=== PATIENT | female | born 1980 | race Caucasian/White ===

== ENCOUNTER → 2018-02-16 | Outpatient (CLI) | payer BC ==
[2018-02-16 17:08] LABS: BASO % 0.7 % (0.0-1.0); EOS # 0.1 10^3/uL (0.0-0.50); HEMATOCRIT 40.3 % (36.0-47.0); HEMOGLOBIN 12.9 g/dl (12.0-15.5); IMMATURE GRANULOCYTE % 0.3 % (0-3.0); LYMPH # 2.1 10^3/uL (1.5-4.5); LYMPH % 35.4 % (24.0-44.0); MEAN CORPUSCULAR HEMOGLOBIN 31.8 pg (27.0-33.0); MEAN CORPUSCULAR VOLUME 99.3 fl (80.0-96.0); MONO # 0.4 10^3/uL (0.0-0.8); MONO % 7.1 % (0.0-5.0); NEUTROPHILS # 3.2 10^3/uL (1.8-7.7); NEUTROPHILS % 54.5 % (36.0-66.0); PLATELET COUNT, AUTOMATED 317 10^3/uL (150-450); RED BLOOD COUNT 4.06 10^6/uL (4.00-5.40); RED CELL DISTRIBUTION WIDTH 11.9 % (11.5-14.5); WHITE BLOOD COUNT 5.9 10^3/uL (4.0-10.0)
[2018-02-16 17:45] LABS: TOTAL 25(OH) VITAMIN D 44.7 NG/ML (30.0-100.0)
[2018-02-17 00:46] LABS: ALBUMIN/GLOBULIN RATIO 0.88 (1.00-1.93); ALKALINE PHOSPHATASE 73 U/L (45-117); ALT/SGPT 22 U/L (12-78); ANION GAP 10 MEQ/L (8-16); AST/SGOT 14 U/L (7-37); BILIRUBIN,TOTAL 0.3 MG/DL (0.2-1.0); BLOOD UREA NITROGEN 16 MG/DL (7-18); CALCIUM LEVEL 9.2 MG/DL (8.5-10.1); CARBON DIOXIDE LEVEL 22 MEQ/L (21-32); CHLORIDE LEVEL 108 MEQ/L (98-107); CREATININE FOR GFR 0.77 MG/DL (0.55-1.30); FREE T4 0.93 NG/DL (0.76-1.46); GLOMERULAR FILTRATION RATE > 60.0 (>60); GLUCOSE, FASTING 92 MG/DL (70-100); POTASSIUM SERUM 4.4 MEQ/L (3.5-5.1); SODIUM LEVEL 140 MEQ/L (136-145); THYROID STIMULATING HORMONE 0.986 uIU/ML (0.358-3.740); TOTAL PROTEIN 7.5 GM/DL (6.4-8.2)
== END ==
LOC: M WUC 11:43
DX: R53.83 Other fatigue (principal); E55.9 Vitamin D deficiency, unspecified
CPT/HCPCS: 84443

== ENCOUNTER → 2018-03-16 | Outpatient (CLI) | payer BC | LOC: M WUC 09:18 | DX: M54.2 Cervicalgia (principal) | CPT/HCPCS: 72052 ==

== ENCOUNTER → 2018-04-11 | Outpatient (REF) | payer BC | LOC: M LAB REF 17:28 | DX: R30.0 Dysuria (principal) | CPT/HCPCS: 87186 ==

== ENCOUNTER → 2018-04-23 | Outpatient (CLI) | payer BC | LOC: M SMT 10:03 | DX: S93.401A Sprain of unspecified ligament of right ankle, initial encounter (principal); X58.XXXA Exposure to other specified factors, initial encounter; Y92.89 Other specified places as the place of occurrence of the external cause | CPT/HCPCS: 73610 ==

== ENCOUNTER → 2019-05-13 | Outpatient (REF) | payer BC ==
[2019-05-13 13:00] LABS: HEMATOCRIT 37.8 % (36.0-47.0); HEMOGLOBIN 12.1 g/dl (12.0-15.5); MEAN CORPUSCULAR HEMOGLOBIN 30.8 pg (27.0-33.0); MEAN CORPUSCULAR VOLUME 96.2 fl (80.0-96.0); PLATELET COUNT, AUTOMATED 343 10^3/uL (150-450); RED BLOOD COUNT 3.93 10^6/uL (4.00-5.40); WHITE BLOOD COUNT 7.4 10^3/uL (4.0-10.0)
[2019-05-13 14:03] LABS: HCG, SERUM QUANTITATIVE 47380 MIU/ML
[2019-05-14 11:05] LABS: RUBELLA IgG QUALITATIVE IMMUNE (IMMUNE)
[2019-05-14 11:34] LABS: HEPATITIS C VIRUS ABY INDEX 0.1 INDEX (<0.8); HIV 1&2 SCREEN CENTAUR NEGATIVE (NEGATIVE)
== END ==
LOC: M LAB REF 12:29
PROVIDERS: ATTEND Obstetrics & Gynecology
DX: O36.80X0 Pregnancy with inconclusive fetal viability, not applicable or unspecified (principal)

== ENCOUNTER → 2019-08-10 | Outpatient (CLI) | payer BC ==
--- NOTE | 2019-08-10 16:23 | REP ---
OB ULTRASOUND: Real-time ultrasound evaluation of gravid uterus performed. There is a single living intrauterine gestation. Estimated gestational age is reportedly 20 weeks 1 days, EDC 12/27/2019. Today's measurements indicate appropriate growth. BPD 50 mm = 21 weeks 1 days, 78th percentile HC 181 mm = 20 weeks 4 days, 63rd percentile AC 147 mm = 20 weeks 0 days, 48th percentile FL 34 mm = 20 weeks 4 days, 63rd percentile HC/AC ratio 1.23, within normal range. Estimated weight 348 grams, 56th percentile. Cervix is closed and measures 3.9 cm in length. heart rate 153 beats per minute. SEEN/GROSSLY UNREMARKABLE Lateral ventricles yes Posterior fossa yes Upper lip yes Four-chamber heart yes LVOT yes RVOT yes Stomach yes Cord insertion yes Three vessel cord yes Kidneys yes Bladder yes Spine yes position: Variable. Placenta: Posterior and grade 1 with no previa or abruption. Amniotic fluid: Within normal limits. Electronically Signed by All Craig MD 08/10/2019 08:01 P
== END ==
LOC: M RAD 13:34
PROVIDERS: ATTEND Obstetrics & Gynecology
DX: Z34.82 Encounter for supervision of other normal pregnancy, second trimester (principal)

== ENCOUNTER 2019-10-14 16:25 | Outpatient (CLI) | payer BC ==
[~2019-10-14] VITALS: Ht 172.7 cm; Wt 85.0 kg
[2019-10-14 16:42] VITALS: BP 125/81
[2019-10-14] MEDS ORDERED: LACTATED RINGER'S 1000 ML IV ONE (16:45)
[2019-10-14] MEDS ORDERED: LR 1,000 ML IV SCH (17:00)
[2019-10-14] MEDS ORDERED: PRENTAB9 PO (17:03)
[2019-10-14 17:30] LABS: BASO % 0.3 % (0.0-1.0); EOS # 0.1 10^3/uL (0.0-0.5); EOS % 0.8 % (0.0-3.0); HEMATOCRIT 30.1 % (36.0-47.0); HEMOGLOBIN 10.3 g/dl (12.0-15.5); LYMPH % 21.6 % (24.0-44.0); MEAN CORPUSCULAR HEMOGLOBIN 32.1 pg (27.0-33.0); MEAN CORPUSCULAR HGB CONC 34.2 g/dl (32.0-36.5); MEAN CORPUSCULAR VOLUME 93.8 fl (80.0-96.0); MONO # 0.6 10^3/uL (0.0-0.8); MONO % 6.2 % (0.0-5.0); NEUTROPHILS # 6.5 10^3/uL (1.5-8.5); NEUTROPHILS % 70.7 % (36.0-66.0); PLATELET COUNT, AUTOMATED 309 10^3/uL (150-450); RED BLOOD COUNT 3.21 10^6/uL (4.00-5.40); WHITE BLOOD COUNT 9.2 10^3/uL (4.0-10.0)
[2019-10-14 17:51] VITALS: BP 114/55
--- NOTE | 2019-10-14 18:25 | REPVR ---
PROCEDURE INFORMATION: Exam: US After First Trimester, Transabdominal Exam date and time: 10/14/2019 5:55 PM Age: 39 years old Clinical indication: Lmp or gestational age (in weeks): 30+; Antepartum complications; Decreased movements; Fetus 1; ; Additional info: Efw TECHNIQUE: Imaging protocol: Real-time transabdominal obstetrical ultrasound of the maternal pelvis and a second or third trimester with image documentation. COMPARISON: US OBS SINGEL GEST 08/10/2019 2:17 PM (report not provided) FINDINGS: There is a single intrauterine gestation in cephalic presentation. anatomic detail is limited due to advanced gestational age. There is no demonstrated abnormality of the head including lateral ventricles and posterior fossa, spine, stomach, kidneys or urinary bladder. There is a three-vessel umbilical cord with bilateral umbilical arterial flow. heart rate: 126 bpm The following anatomic measurements were obtained: BPD 8.1 cm (32 weeks 4 day(s)) head circumference 30.0 cm (33 weeks 2 day(s)) abdomen circumference 24.9 cm (29 weeks 1 day(s)) femur length 5.9 cm (31 weeks 0 day(s)) head/abdomen circumference ratio 1.21 (range 0.98 - 1.17) Estimated weight 1559 g (64th percentile) Estimated gestational age based on this ultrasound 31 weeks 4 day(s) (Estimated date of confinement 12/12/19) The placenta is posterior fundal. There is no demonstrated placenta previa or abruption. The cervix is closed and measures 3.9 cm in length. The amniotic fluid index measures 17.3 cm. No abnormality is demonstrated in the maternal pelvis. IMPRESSION: 1. Single viable intrauterine gestation with estimated gestational age of 31 weeks 4 days, based on measurements from this ultrasound. 2. Estimated weight 1559 g (64th percentile). 3. Head/abdomen circumference ratio slightly higher range as above, significance uncertain. Electronically signed by: Trung Holman On 10/14/2019 18:25:16 PM
[2019-10-14 19:44] LABS: APPEARANCE, URINE CLEAR (CLEAR); BACTERIA, URINE AUTO 2+ (NEGATIVE); BILIRUBIN, URINE AUTO NEGATIVE (NEGATIVE); BLOOD, URINE BLOOD NEGATIVE (NEGATIVE); COLOR, URINE YELLOW (YELLOW); GLUCOSE, URINE (UA) AUTO NEGATIVE (NEGATIVE); KETONE, URINE AUTO NEGATIVE (NEGATIVE); LEUKOCYTE ESTERASE, URINE AUTO NEGATIVE (NEGATIVE); MUCUS, URINE SMALL (NEGATIVE); NITRITE, URINE AUTO NEGATIVE (NEGATIVE); PROTEIN, URINE AUTO NEGATIVE (NEGATIVE); RBC, URINE AUTO 1 /HPF (0-3); SPECIFIC GRAVITY URINE AUTO 1.008 (1.002-1.035); SQUAMOUS EPITHELIAL CELL UR AU 0 /HPF (0-6); UROBILINOGEN, URINE AUTO 0.2 mg/dL (0.0-2.0); WBC, URINE AUTO 0 /HPF (0-3)
== END 2019-10-14 19:55 | disposition home or self-care (01) ==
LOC: M LDO 16:25
PROVIDERS: ATTEND Obstetrics & Gynecology
DX: Z36.89 Encounter for other specified antenatal screening (principal); O36.8130 Decreased fetal movements, third trimester, not applicable or unspecified; Z3A.30 30 weeks gestation of pregnancy
CPT/HCPCS: 59025; 76816; 76819; 76820; 81001; 85025; G0378; G0463

== ENCOUNTER → 2019-11-25 | Outpatient (REF) | payer BC ==
[~2019-11-25] MED LIST: PRENTAB9 PO
== END ==
LOC: M LAB REF 11:57
PROVIDERS: ATTEND Obstetrics & Gynecology
DX: Z34.83 Encounter for supervision of other normal pregnancy, third trimester (principal)

== ENCOUNTER 2019-12-27 12:51 | Inpatient (IN) | payer BC, OTHER ==
[~2019-12-27] VITALS: Ht 160 cm; Wt 90.7 kg
[~2019-12-27 12:51] MED LIST changes: -IBUP80TA PO; -IRON65TA2 PO; -PERCOCET PO
[2019-12-27] MEDS ORDERED: IRON65TA2 PO (13:27)
[2019-12-27 13:32] VITALS: BP 125/80
[2019-12-27 14:42] VITALS: BP 129/67
[2019-12-27] MEDS: miSOPROStol 50 MCG 1/2 TAB (S0191) PO SCH ×3 (15:01→23:40)
[2019-12-27] MEDS: LR 1,000 ML IV SCH ×2 (15:05→17:30)
[2019-12-27 15:12] VITALS: BP 127/74
[2019-12-27 15:12] LABS: HEMATOCRIT 34.7 % (36.0-47.0); HEMOGLOBIN 11.5 g/dl (12.0-15.5); MEAN CORPUSCULAR HEMOGLOBIN 31.8 pg (27.0-33.0); MEAN CORPUSCULAR HGB CONC 33.1 g/dl (32.0-36.5); MEAN CORPUSCULAR VOLUME 95.9 fl (80.0-96.0); PLATELET COUNT, AUTOMATED 214 10^3/uL (150-450); RED BLOOD COUNT 3.62 10^6/uL (4.00-5.40); WHITE BLOOD COUNT 10.3 10^3/uL (4.0-10.0)
[2019-12-27 17:07] VITALS: BP 117/64
[2019-12-27 18:07] VITALS: BP 136/64
[2019-12-27 22:13] VITALS: BP 125/66
[2019-12-28] VITALS (45 sets, daily range): BP systolic 97–181; BP diastolic 51–107
[2019-12-28] MEDS: miSOPROStol 50 MCG 1/2 TAB (S0191) PO SCH (02:00)
[2019-12-28] MEDS ORDERED: OXYTOCIN DRIP 30 UNITS in IV 1 EA IV SCH ×2 (07:30→17:51)
[2019-12-28] MEDS ORDERED: OXYTOCIN 30 UNITS IN 0.9% NaCl 500ML IV BAG (J2590) As Ordered ONE ×2 (07:33→18:12)
[2019-12-28] MEDS: LR 1,000 ML IV SCH (10:33)
[2019-12-28] MEDS ORDERED: FENTANYL 2MCG/ML ROPIVACAINE 0.2% IN 0.9% NACL 100ML IVBAG As Ordered ONE (10:35)
[2019-12-28] MEDS ORDERED: REFRIGERATOR IV KEYS XX PRN (11:15)
[2019-12-28] MEDS ORDERED: EPIDURAL/PCA KEYS XX PRN (11:15)
[2019-12-28] MEDS ORDERED: ONDANSETRON 4MG/2ML VIAL IV PRN ×3 (11:15→19:15)
[2019-12-28] MEDS ORDERED: FENTANYL/ROPIVACAINE/NACL BAG 100 ML EPIDURAL SCH (11:15)
[2019-12-28] MEDS ORDERED: NALOXONE INJ 0.4MG/1ML VIAL (J2310 PER 1MG) IV PRN ×3 (11:15→17:25)
[2019-12-28] MEDS ORDERED: LACTATED RINGER'S 1000 ML IV PRN (11:15)
[2019-12-28] MEDS ORDERED: EPIDURAL COMMENT XX SCH (11:15)
[2019-12-28] MEDS ORDERED: diphenhydrAMINE 50MG/ML VIAL (J1200) IV PRN ×2 (11:15→17:25)
[2019-12-28] MEDS ORDERED: ePHEDrine SULFATE 25 MG/5 ML(5MG/ML) SYRINGE IV PRN (11:15)
--- NOTE | 2019-12-28 16:18 | HPE ---
DATE OF ADMISSION: 12/27/2019 Reba is a 39-year-old female 2, para 0-0-1-0 with an expected date of confinement (EDC) of 12/23/2019, estimated gestational age (EGA) of 40-4/7 weeks gestation who is being admitted for an induction. Upon admission no bleeding or leakage of fluid. Good movement. The patient had a recent biophysical profile 01/14 with a fluid 15. Her record reviewed which was essentially unremarkable. LABS: Blood type is A+, rubella immune, hepatitis negative, HIV negative, GC chlamydia negative, 1-hour sugar testing was within normal limit. Her GBS is negative. PAST MEDICAL HISTORY: Past medical history significant for kidney infection. PAST SURGICAL HISTORY: Denies. SOCIAL HISTORY: She is . Denies any alcohol, drug or cigarette smoking. She is a former smoker. MEDICATION: vitamins. ALLERGIES: ZITHROMAX. FAMILY HISTORY: Significant for diabetes and hypertension. REVIEW OF SYSTEMS: Unremarkable. PHYSICAL EXAMINATION: HEENT: Grossly within normal limits. Abdomen: Soft, nontender, nondistended. Extremities: No clubbing, cyanosis or edema. Vaginal exam: Fingertip to 1 cm dilated, 50% effaced, fetus at -3 station, vertex position. ASSESSMENT: Intrauterine at 40-4/7 weeks gestation being admitted for an induction. PLAN: Admit to labor and delivery. Induction process discussed. Will proceed with Cytotec induction. Pain management also discussed. The patient opts for an epidural. Will continue to monitor. Anticipate delivery.
[2019-12-28] MEDS ORDERED: BICITRA 30ML SOLN UDC As Ordered ONE (16:54)
[2019-12-28] MEDS ORDERED: ceFAZolin 2 GM/D5W 50 ML IV BAG (J0690 PER 500MG) As Ordered ONE (16:54)
[2019-12-28] MEDS ORDERED: METOCLOPRAMIDE INJ 10MG/2ML VIAL (J2765 PER 1) As Ordered ONE (17:20)
[2019-12-28] MEDS ORDERED: ONDANSETRON 4MG/2ML VIAL As Ordered ONE (17:20)
[2019-12-28] MEDS ORDERED: dexameTHASONE 4 MG/ML 1ML VIAL (J1100 PER 1MG) As Ordered ONE (17:20)
[2019-12-28] MEDS ORDERED: fentaNYL 100 MCG/2 ML INJECTION (J3010) As Ordered ONE (17:20)
[2019-12-28] MEDS ORDERED: LIDOCAINE 2% W/EPINEPHRINE 20ML VIAL **PRES FREE As Ordered ONE (17:20)
[2019-12-28] MEDS ORDERED: OXYTOCIN INJ 10 UNITS/ML VIAL (J2590) As Ordered ONE (17:21)
[2019-12-28] MEDS ORDERED: SODIUM BICARBONATE 8.4% INJ 50 ML SYRINGE As Ordered ONE (17:21)
[2019-12-28] MEDS ORDERED: PHENYLephrine HCL 500 MCG/5 ML (100MCG/ML) SYRINGE (J2370) As Ordered ONE (17:24)
[2019-12-28] MEDS ORDERED: METOCLOPRAMIDE INJ 10MG/2ML VIAL (J2765 PER 1) IV PRN ×2 (17:25→19:15)
[2019-12-28] MEDS ORDERED: NALBUPHINE HCL 10 MG/ML AMP (J2300) IV PRN (17:25)
[2019-12-28] MEDS ORDERED: ceFAZolin SOD 2 GM in IV 1 EA IV ONE (17:30)
[2019-12-28] MEDS ORDERED: BICITRA 30ML SOLN UDC PO ONE (17:30)
[2019-12-28 17:32] LABS: CORD GAS ABE A -11.7; CORD GAS HCO3 A 18.1 MEQ/L; CORD GAS O2 SAT A 39.8 %; CORD GAS PCO2 A 55.9 mmHg; CORD GAS PH A 7.127 UNITS; CORD GAS PO2 A 22.9 mmHg; CORD GAS SBC A 14.3 MEQ/L; CORD GAS TCO2 A 19.8 MEQ/L
[2019-12-28] MEDS ORDERED: MORPHINE PRES-FREE INJ 10 MG/10 ML VIAL (J2274) As Ordered ONE (17:32)
[2019-12-28 17:33] LABS: CORD GAS ABE V -11.3; CORD GAS HCO3 V 16.8 MEQ/L; CORD GAS O2 SAT V 42.6 %; CORD GAS PCO2 V 45.7 mmHg; CORD GAS PH V 7.184 UNITS; CORD GAS PO2 V 21.7 mmHg; CORD GAS SBC V 14.6 MEQ/L; CORD GAS TCO2 V 18.2 MEQ/L
[2019-12-28] MEDS ORDERED: KETOROLAC 60MG 2ML VIAL As Ordered ONE (17:34)
[2019-12-28] MEDS ORDERED: MEASLES,MUMPS,RUBELLA VACCINE INJ (MMR-II) (90707) SC SCH (18:00)
[2019-12-28] MEDS ORDERED: RHOGAM 300 MCG (1500 IU) INJ (J2790) IM SCH (18:00)
[2019-12-28] MEDS ORDERED: fentaNYL 100 MCG/2 ML INJECTION (J3010) IV PRN (19:15)
[2019-12-28] MEDS ORDERED: PERCOCET 5MG/325MG TAB PO PRN (19:15)
[2019-12-28] MEDS ORDERED: MEPERIDINE INJ 25 MG/ML VIAL (J2175) IV PRN (19:15)
[2019-12-28] MEDS ORDERED: LR 1,000 ML IV SCH (19:15)
[2019-12-28] MEDS ORDERED: LR 600 ML IV ONE (21:15)
[2019-12-28] MEDS: KETOROLAC 30 MG/ML 1ML VIAL IV SCH (23:51)
[2019-12-29 02:22] VITALS: BP 121/58
[2019-12-29] MEDS: KETOROLAC 30 MG/ML 1ML VIAL IV SCH ×2 (06:03→11:40)
[2019-12-29 06:33] VITALS: BP 112/63
[2019-12-29 09:42] LABS: HEMATOCRIT 30.6 % (36.0-47.0); HEMOGLOBIN 9.9 g/dl (12.0-15.5); MEAN CORPUSCULAR HEMOGLOBIN 31.1 pg (27.0-33.0); MEAN CORPUSCULAR HGB CONC 32.4 g/dl (32.0-36.5); MEAN CORPUSCULAR VOLUME 96.2 fl (80.0-96.0); PLATELET COUNT, AUTOMATED 185 10^3/uL (150-450); RED BLOOD COUNT 3.18 10^6/uL (4.00-5.40); WHITE BLOOD COUNT 15.2 10^3/uL (4.0-10.0)
[2019-12-29] MEDS: PRENATAL VITAMINS CHEWABLE TABLET PO SCH (09:43)
[2019-12-29 10:00] VITALS: BP 117/57
[2019-12-29 14:00] VITALS: BP 139/62
[2019-12-29 18:00] VITALS: BP 132/72
[2019-12-29] MEDS: IBUPROFEN 800 MG TAB PO SCH (19:46)
[2019-12-29 22:23] VITALS: BP 130/65
[2019-12-29] MEDS: PERCOCET 5MG/325MG TAB PO PRN (22:33)
[2019-12-30 02:18] VITALS: BP 109/58
[2019-12-30] MEDS: IBUPROFEN 800 MG TAB PO SCH ×2 (04:02→11:40)
[2019-12-30 06:30] VITALS: BP 123/58
[2019-12-30] MEDS: PRENATAL VITAMINS CHEWABLE TABLET PO SCH (07:46)
[2019-12-30] MEDS: PERCOCET 5MG/325MG TAB PO PRN (07:49)
[2019-12-30] MEDS ORDERED: IBUP80TA PO (08:55)
[2019-12-30] MEDS ORDERED: PERCOCET PO (08:55)
--- NOTE | 2019-12-30 09:01 | OBDS ---
[facility] Obstetrical Discharge Sum. Obstetrical Discharge Summary Senior [employer] Architect/Provider: Jez Durham DO Date: Dec 30, 2019 : 2 Term: 1 Pre-term: 0 Abortions: 1 Livin VDRL: Non-Reactive Infant Sex: Male A/P, Post Course List any complications Admission diagnosis: Post dates at 40 4/7 weeks. Discharge diagnosis: Arrest of descent Condition at Discharge: [stable] Discharge Instructions: [see instructions] Activity: [as tolerate] Diet: [regular] Medications: [see list] Follow-up: [2 weeks] Other: Jez Durham DO Dec 30, 2019 09:01
== END 2019-12-31 | disposition home or self-care (01) | DRG 540 ==
LOC: M LDI 12:51 → M OBS 12-28 20:12
PROVIDERS: ADMIT Obstetrics & Gynecology; ATTEND Obstetrics & Gynecology
PROC: 3E0DXGC Introduction of Other Therapeutic Substance into Mouth and Pharynx, External Approach (ICD-10-PCS; 2019-12-27)
PROC: 10D00Z1 Extraction of Products of Conception, Low, Open Approach (ICD-10-PCS; principal; 2019-12-28 17:11)
DX: O48.0 Post-term pregnancy (principal); O32.4XX0 Maternal care for high head at term, not applicable or unspecified; Z37.0 Single live birth; Z3A.40 40 weeks gestation of pregnancy; O09.523 Supervision of elderly multigravida, third trimester

== ENCOUNTER → 2019-12-27 | Outpatient (CLI) | payer BC, OTHER ==
[~2019-12-27] MED LIST changes: +IBUP80TA PO; +IRON65TA2 PO; +PERCOCET PO
--- NOTE | 2019-12-27 12:12 | REP ---
Clinical: well-being. Comparison: 10/14/2019 . Findings: Examination demonstrates a single live intrauterine in cephalic presentation. motion is identified by technologist. Placenta is noted posterior and grade I I I without evidence for placenta previa or abruption. Amniotic fluid volume is normal. Cervix measures 3.0 cm in length and appears closed. No evidence for nuchal cord. Gestational age by LMP 40 weeks 5 days with TARSHA 12/22/2019 . FHR equals 134 beats per minute. Biophysical profile score: 8/8 Amniotic fluid index: 15.9 cm Impression: Single live advanced gestation in cephalic presentation. Biophysical profile score and amniotic fluid volume are normal. Electronically Signed by Gio Draper MD 12/27/2019 12:04 P
== END ==
LOC: M PLAIMG 11:26
PROVIDERS: ATTEND Obstetrics & Gynecology
DX: Z34.83 Encounter for supervision of other normal pregnancy, third trimester (principal); Z3A.40 40 weeks gestation of pregnancy

== ENCOUNTER → 2021-01-16 | Outpatient (REF) | payer OTHER ==
[~2021-01-16] MED LIST changes: +IBUP80TA PO; +IRON65TA2 PO; +PERCOCET PO
[2021-01-16 16:20] LABS: BASO % 0.6 % (0.0-1.0); EOS # 0.1 10^3/uL (0.0-0.5); EOS % 2.1 % (0.0-3.0); HEMOGLOBIN 12.6 g/dl (12.0-15.5); LYMPH # 1.8 10^3/uL (1.5-5.0); LYMPH % 27.4 % (24.0-44.0); MEAN CORPUSCULAR HGB CONC 31.5 g/dl (32.0-36.5); MEAN CORPUSCULAR VOLUME 98.5 fl (80.0-96.0); MONO # 0.4 10^3/uL (0.0-0.8); MONO % 6.4 % (2.0-8.0); NEUTROPHILS # 4.2 10^3/uL (1.5-8.5); NEUTROPHILS % 63.4 % (36.0-66.0); PLATELET COUNT, AUTOMATED 303 10^3/uL (150-450); RED BLOOD COUNT 4.06 10^6/uL (4.00-5.40); WHITE BLOOD COUNT 6.7 10^3/uL (4.0-10.0)
[2021-01-16 17:10] LABS: BLOOD UREA NITROGEN 10 MG/DL (7-18); CALCIUM LEVEL 9.2 MG/DL (8.5-10.1); CARBON DIOXIDE LEVEL 24 MEQ/L (21-32); CHLORIDE LEVEL 107 MEQ/L (98-107); CREATININE FOR GFR 0.72 MG/DL (0.55-1.30); GLOMERULAR FILTRATION RATE > 60.0 (>60); GLUCOSE, FASTING 93 MG/DL (70-100); POTASSIUM SERUM 4.5 MEQ/L (3.5-5.1); SODIUM LEVEL 138 MEQ/L (136-145)
[2021-01-16 17:11] LABS: ALBUMIN 3.7 GM/DL (3.2-5.2); ALT/SGPT 33 U/L (12-78); BILIRUBIN,TOTAL 0.4 MG/DL (0.2-1.0); CHOLESTEROL LEVEL 278 MG/DL (<200); FOLATE 20.8 NG/ML; HDL CHOLESTEROL 50 MG/DL (>40); IRON (FE) 96 UG/DL (50-170); LDL CHOLESTEROL 181 MG/DL (<100); NON-HDL-C 228 MG/DL; THYROID STIMULATING HORMONE 0.895 uIU/ML (0.358-3.740); TOTAL 25(OH) VITAMIN D 38.6 NG/ML (30.0-100.0); TOTAL PROTEIN 7.2 GM/DL (6.4-8.2); TRIGLYCERIDES LEVEL 233 MG/DL (<150); VITAMIN B12 LEVEL 382 PG/ML
== END ==
LOC: M SFHCCAPE 08:30
PROVIDERS: ATTEND Physician Assistant
DX: R53.83 Other fatigue (principal); F32.0 Major depressive disorder, single episode, mild; F41.9 Anxiety disorder, unspecified

== ENCOUNTER → 2021-01-23 | Outpatient (CLI) | payer OTHER ==
--- NOTE | 2021-01-23 21:23 | REP ---
INDICATION: STRAIN OF MUSCLE FASCIA AND TENDON LOWER BACK, SCIATICA BILA COMPARISON: None. TECHNIQUE: Three views of the sacrum and coccyx. FINDINGS: Sacrum, coccyx and associated joint spaces along with surrounding osseous structures and soft tissues are normal/age-appropriate. Incidental phleboliths noted in the pelvis. No evidence for acute fracture or subluxation. IMPRESSION: Normal age-appropriate sacrococcygeal radiograph series. No acute fracture or dislocation. <Electronically signed by Gio Draper > 01/23/21 [id number]
--- NOTE | 2021-01-23 21:24 | REP ---
INDICATION: STRAIN OF MUSCLE FASCIA AND TENDON LOWER BACK, SCIATICA BILA COMPARISON: None. TECHNIQUE: AP, lateral, bilateral oblique, and coned-down views of the lumbar spine. FINDINGS: Alignment and lordosis maintained. Vertebral bodies are intact. No acute fracture/compression injury or subluxation. Disc spaces are relatively normal/age-appropriate although mild disc space narrowing at L5-S1 cannot be excluded. No obvious spondylolysis or spondylolisthesis. IMPRESSION: Normal age-appropriate lumbosacral Spine series. Minimal disc space narrowing at L5-S1 cannot be excluded and should be correlated with symptoms. Consider MRI if patient remains symptomatic. <Electronically signed by Gio Draper > 01/23/21 [id number]
== END ==
LOC: M WUC 15:26
PROVIDERS: ATTEND Physician Assistant
DX: M54.32 Sciatica, left side (principal); M54.31 Sciatica, right side; S39.012A Strain of muscle, fascia and tendon of lower back, initial encounter; X58.XXXA Exposure to other specified factors, initial encounter; Y92.89 Other specified places as the place of occurrence of the external cause; Y93.89 Activity, other specified; Y99.8 Other external cause status

== ENCOUNTER → 2021-10-02 | Outpatient (REF) | payer OTHER ==
[2021-10-02 16:08] LABS: BASO # 0.1 10^3/uL (0.0-0.2); BASO % 0.9 % (0.0-1.0); EOS # 0.2 10^3/uL (0.0-0.5); EOS % 2.5 % (0.0-3.0); HEMATOCRIT 38.9 % (36.0-47.0); HEMOGLOBIN 12.4 g/dl (12.0-15.5); LYMPH # 2.2 10^3/uL (1.5-5.0); LYMPH % 34.3 % (24.0-44.0); MEAN CORPUSCULAR HGB CONC 31.9 g/dl (32.0-36.5); MEAN CORPUSCULAR VOLUME 97.3 fl (80.0-96.0); MONO # 0.4 10^3/uL (0.0-0.8); MONO % 5.9 % (2.0-8.0); NEUTROPHILS # 3.6 10^3/uL (1.5-8.5); NEUTROPHILS % 56.2 % (36.0-66.0); PLATELET COUNT, AUTOMATED 303 10^3/uL (150-450); WHITE BLOOD COUNT 6.4 10^3/uL (4.0-10.0)
[2021-10-02 16:40] LABS: ALBUMIN 3.7 GM/DL (3.2-5.2); ALT/SGPT 25 U/L (12-78); BILIRUBIN,TOTAL 0.4 MG/DL (0.2-1.0); BLOOD UREA NITROGEN 14 MG/DL (7-18); CALCIUM LEVEL 9.2 MG/DL (8.5-10.1); CARBON DIOXIDE LEVEL 24 MEQ/L (21-32); CHLORIDE LEVEL 108 MEQ/L (98-107); CHOLESTEROL LEVEL 242 MG/DL (<200); CHOLESTEROL RISK RATIO 4.033 (<5); CREATININE FOR GFR 0.81 MG/DL (0.55-1.30); GLOMERULAR FILTRATION RATE > 60.0 (>60); GLUCOSE, FASTING 93 MG/DL (70-100); HDL CHOLESTEROL 60 MG/DL (>40); LDL CHOLESTEROL 149 MG/DL (<100); NON-HDL-C 182 MG/DL; POTASSIUM SERUM 4.2 MEQ/L (3.5-5.1); SODIUM LEVEL 138 MEQ/L (136-145); THYROID STIMULATING HORMONE 0.984 uIU/ML (0.358-3.740); TOTAL 25(OH) VITAMIN D 20.4 NG/ML (30.0-100.0); TOTAL PROTEIN 7.2 GM/DL (6.4-8.2); TRIGLYCERIDES LEVEL 167 MG/DL (<150)
== END ==
LOC: M SFHCCAPE 10:55
PROVIDERS: ATTEND Physician Assistant
DX: F32.0 Major depressive disorder, single episode, mild (principal); F41.9 Anxiety disorder, unspecified; E78.2 Mixed hyperlipidemia; E55.9 Vitamin D deficiency, unspecified

== ENCOUNTER → 2022-05-08 | Outpatient (REF) | payer OTHER | LOC: M WUC 12:12 | PROVIDERS: ATTEND Physician Assistant | DX: J06.9 Acute upper respiratory infection, unspecified (principal) ==

== ENCOUNTER 2022-12-16 21:17 | Emergency (ER) | payer OTHER ==
[~2022-12-16] VITALS: Ht 157.5 cm; Wt 81.8 kg
[2022-12-17 02:13] LABS: BASO # 0.1 10^3/uL (0.0-0.2); BASO % 0.7 % (0.0-1.0); EOS # 0.4 10^3/uL (0.0-0.5); HEMATOCRIT 40.3 % (36.0-47.0); LYMPH # 3.9 10^3/uL (1.5-5.0); LYMPH % 36.4 % (24.0-44.0); MEAN CORPUSCULAR HEMOGLOBIN 31.6 pg (27.0-33.0); MEAN CORPUSCULAR HGB CONC 32.3 g/dl (32.0-36.5); MEAN CORPUSCULAR VOLUME 97.8 fl (80.0-96.0); MONO # 0.7 10^3/uL (0.0-0.8); MONO % 6.2 % (2.0-8.0); NEUTROPHILS # 5.6 10^3/uL (1.5-8.5); NEUTROPHILS % 52.5 % (36.0-66.0); PLATELET COUNT, AUTOMATED 323 10^3/uL (150-450); RED BLOOD COUNT 4.12 10^6/uL (4.00-5.40); WHITE BLOOD COUNT 10.7 10^3/uL (4.0-10.0)
[2022-12-17 03:35] LABS: ETHYL ALCOHOL (ETHANOL) < 0.003 % (0.000-0.010)
[2022-12-17 03:37] LABS: BLOOD UREA NITROGEN 13 MG/DL (9-23); CALCIUM LEVEL 9.9 MG/DL (8.5-10.1); CARBON DIOXIDE LEVEL 23 MMOL/L (20-31); CHLORIDE LEVEL 105 MMOL/L (98-107); CK-MB VALUE MASS < 1.0 NG/ML (<3.6); CREATININE FOR GFR 0.64 MG/DL (0.55-1.30); GLOMERULAR FILTRATION RATE > 60.0 (>58); GLUCOSE, FASTING 91 MG/DL (60-100); MAGNESIUM LEVEL 1.8 MG/DL (1.8-2.4); POTASSIUM SERUM 3.9 MMOL/L (3.5-5.1); SODIUM LEVEL 137 MMOL/L (136-145)
[2022-12-17 03:39] LABS: FREE T4 1.13 NG/DL (0.89-1.76); THYROID STIMULATING HORMONE 3.935 uIU/ML (0.55-4.78)
[2022-12-17 03:42] LABS: HCG, SERUM QUALITATIVE NEGATIVE (NEGATIVE)
[2022-12-17 03:43] LABS: CPK CREATINE PHOSPHOKINASE 84 U/L (34-145); MB/CK RELATIVE INDEX 1.19 (< OR =4)
[2022-12-17 05:00] VITALS: BP 168/85
[2022-12-17 05:05] LABS: CK-MB VALUE MASS < 1.0 NG/ML (<3.6)
[2022-12-17 05:06] LABS: CPK CREATINE PHOSPHOKINASE 79 U/L (34-145); MB/CK RELATIVE INDEX 1.26 (< OR =4)
[2022-12-17 05:30] VITALS: TEMP 98.2; O2SAT 100
== END 2022-12-17 06:57 | disposition home or self-care (01) ==
LOC: M ED 21:17
DX: R55 Syncope and collapse (principal); E55.9 Vitamin D deficiency, unspecified; Z79.899 Other long term (current) drug therapy; Z88.1 Allergy status to other antibiotic agents

== ENCOUNTER → 2023-04-23 | Outpatient (REF) | payer OTHER | LOC: M LAB REF 16:16 | PROVIDERS: ATTEND Nurse Practitioner Family | DX: R30.0 Dysuria (principal) ==

== ENCOUNTER → 2023-05-30 | Outpatient (CLI) | payer OTHER | LOC: M WHC 13:07 | PROVIDERS: ATTEND Obstetrics & Gynecology | DX: Z12.31 Encounter for screening mammogram for malignant neoplasm of breast (principal) ==

== ENCOUNTER → 2023-10-03 | Outpatient (CLI) | payer OTHER | LOC: M WHC 07:25 | PROVIDERS: ATTEND Obstetrics & Gynecology | DX: N93.9 Abnormal uterine and vaginal bleeding, unspecified (principal) ==